=== PATIENT | female | born 1990 | race Caucasian/White ===

== ENCOUNTER 2019-06-03 15:15 | Inpatient (IN) | payer BC ==
[2019-06-03] VITALS (10 sets, daily range): BP systolic 115–148; BP diastolic 67–89
[~2019-06-03] VITALS: Ht 160 cm; Wt 81.6 kg
[2019-06-03] MEDS ORDERED: IV NORMAL SALINE 1000ML BAG 1,000 ML IV SCH (15:41)
--- NOTE | 2019-06-03 15:53 | PHYS DOC ---
Adult General Chief Complaint Chief Complaint: MULTIPLE COMPLAINTS HPI HPI Patient is a 28 year old Female who presents with Her last one and half weeks since she has had her baby on May 22. Patient states that she is also started last couple days feeling weak, dizzy and nauseated. Patient states she has not been drinking enough fluids but that is usually normal for her. Patient is breast-feeding. Patient states that the headache will start at the bottom of the neck and go up and wraps around to the forehead area. Patient states it's a throbbing pain. Patient states it comes and goes. Patient currently rates her pain a 0. Patient states she does have a history of headaches but this one feels worse than she has a past. Patient states that today she just feels numb all over and seems that she can get her words out straight or is having a hard time texting. Patient states she took Tylenol at 1200 today and took Aleve this morning at 0800. Review of Systems Review of Systems Eyes: + change in visual acuity, denies redness, or eye pain [] Respiratory: Denies cough. +shortness of breath [] GI: Denies abdominal pain, +nausea, denies vomiting, bloody stools or diarrhea [] Neurologic: headache, denies focal weakness or Generalized numbness sensory changes [] All other systems were reviewed and found to be within normal limits, except as documented in this note. Current Medications Current Medications Current Medications Medications (Trade) Dose Ordered Sig/Isai Start Time Stop Time Status Last Admin Dose Admin Meclizine HCl (Antivert) 25 mg 1X ONCE 06/03/19 16:00 06/03/19 16:01 DC 06/03/19 16:00 25 MG Sodium Chloride 1,000 ml @ 1,000 mls/hr Q1H 06/03/19 15:41 06/03/19 16:40 DC 06/03/19 15:41 1,000 MLS/HR Allergies Allergies Allergies Coded Allergies Type Severity Reaction Last Updated Verified Sulfa (Sulfonamide Antibiotics) Allergy Intermediate Unknown 06/03/19 Yes Physical Exam Physical Exam Constitutional: Well developed, well nourished, no acute distress, non-toxic appearance. [] HENT: Normocephalic, atraumatic, bilateral external ears normal, oropharynx moist, no oral exudates, nose normal. [] Eyes: PERRLA, EOMI, conjunctiva normal, no discharge. [] Neck: Normal range of motion, no tenderness, supple, no stridor. [] Cardiovascular:Heart rate regular rhythm, no murmur [] Lungs & Thorax: Bilateral breath sounds clear to auscultation [] Abdomen: Bowel sounds normal, soft, no tenderness, no masses, no pulsatile masses. [] Skin: Warm, dry, no erythema, no rash. [] Back: No tenderness, no CVA tenderness. [] Extremities: No tenderness, no cyanosis, no clubbing, ROM intact, no edema. [] Neurologic: Alert and oriented X 3, normal motor function, normal sensory function, no focal deficits noted. [] Psychologic: Affect normal, judgement normal, mood normal. Normal Physical Exam[] Current Patient Data Vital Signs Vital Signs Date Time Temp Pulse Resp B/P (MAP) Pulse Ox O2 Delivery O2 Flow Rate FiO2 06/03/19 16:03 98.6 70 17 156/94 (114) 98 Room Air 98.6 Lab Values Laboratory Tests Test 06/03/19 15:33 06/03/19 16:28 White Blood Count 9.5 x10^3/uL (4.0-11.0) Red Blood Count 4.87 x10^6/uL (3.50-5.40) Hemoglobin 14.4 g/dL (12.0-15.5) Hematocrit 42.4 % (36.0-47.0) Mean Corpuscular Volume 87 fL (79-100) Mean Corpuscular Hemoglobin 30 pg (25-35) Mean Corpuscular Hemoglobin Concent 34 g/dL (31-37) Red Cell Distribution Width 13.5 % (11.5-14.5) Platelet Count 268 x10^3/uL (140-400) Neutrophils (%) (Auto) 68 % (31-73) Lymphocytes (%) (Auto) 23 % (24-48) L Monocytes (%) (Auto) 6 % (0-9) Eosinophils (%) (Auto) 2 % (0-3) Basophils (%) (Auto) 1 % (0-3) Neutrophils # (Auto) 6.4 x10^3/uL (1.8-7.7) Lymphocytes # (Auto) 2.2 x10^3/uL (1.0-4.8) Monocytes # (Auto) 0.6 x10^3/uL (0.0-1.1) Eosinophils # (Auto) 0.2 x10^3/uL (0.0-0.7) Basophils # (Auto) 0.1 x10^3/uL (0.0-0.2) Sodium Level 144 mmol/L (136-145) Potassium Level 4.2 mmol/L (3.5-5.1) Chloride Level 105 mmol/L (98-107) Carbon Dioxide Level 27 mmol/L (21-32) Anion Gap 12 (6-14) Blood Urea Nitrogen 19 mg/dL (7-20) Creatinine 0.8 mg/dL (0.6-1.0) Estimated GFR (Cockcroft-Gault) 85.4 BUN/Creatinine Ratio 24 (6-20) H Glucose Level 107 mg/dL (70-99) H Calcium Level 9.8 mg/dL (8.5-10.1) Total Bilirubin 0.2 mg/dL (0.2-1.0) Aspartate Amino Transferase (AST) 12 U/L (15-37) L Alanine Aminotransferase (ALT) 12 U/L (14-59) L Alkaline Phosphatase 126 U/L (46-116) H Troponin I Quantitative < 0.017 ng/mL (0.000-0.055) Total Protein 7.4 g/dL (6.4-8.2) Albumin 3.8 g/dL (3.4-5.0) Albumin/Globulin Ratio 1.1 (1.0-1.7) Glucose (Fingerstick) 110 mg/dL (70-99) H Laboratory Tests 06/03/19 15:33 Laboratory Tests 06/03/19 15:33 EKG EKG Sinus Rhythm and no STEMI Interpretation Time: 1553 and read by Kousha Radiology/Procedures Radiology/Procedures [] Impressions: [facility] [address] [place] [address] IMAGING REPORT Signed PATIENT: YURIY GATES EACCOUNT: [id number] : 1990 LOCATION: ER AGE: 28 SEX: F EXAM STATUS: REG ER ORD. PHYSICIAN: HOME EVANS APRN REASON: HEADACHE PROCEDURE: CT HEAD WO CONTRAST Exam: CT head INDICATION: Headache TECHNIQUE: Sequential axial images through the head were obtained without the administration of IV contrast. Comparisons: None FINDINGS: No focal parenchymal lesion or hemorrhage is identified. There is no midline shift or sulcal effacement. No acute vascular territory infarction is identified. Cuello-white distinction is preserved. The ventricular system is within normal limits without compression hydrocephalus. The basal cisterns are well maintained. The visualized portions of the paranasal sinuses and mastoid air cells are well-pneumatized. No acute fractures. IMPRESSION: No acute intracranial abnormality. Exposure: One or more of the following in the visualized dose reduction techniques were utilized for this examination: 1. Automated exposure control 2. Adjustment of the MA and/or KV according to patient size Use of iterative of reconstructive technique Electronically signed by: David Morfin MD (06/03/2019 4:14 PM) [facility] DICTATED and SIGNED BY: DAVID MORFIN MD DATE: 06/03/19 1614 [facility] [address] [place] [address] IMAGING REPORT Signed PATIENT: YURIY GATES EACCOUNT: [id number] : 1990 LOCATION: ER AGE: 28 SEX: F EXAM STATUS: REG ER ORD. PHYSICIAN: HOME EVANS APRN REASON: Short of breath, CVA PROCEDURE: CHEST PA & LATERAL CHEST PA LATERAL History: Shortness of breath. Comparison: None. Findings: No consolidation or pleural effusion. Normal heart size. Impression: 1. No acute cardiopulmonary process. Electronically signed by: Abraham Garcia DO (06/03/2019 4:36 PM) [facility] DICTATED and SIGNED BY: ABRAHAM GARCIA DO DATE: 06/03/19 1636 Course & Med Decision Making Course & Med Decision Making Patient is a 28 year old Female who presents with Her last one and half weeks since she has had her baby on May 22. Patient states that she is also started last couple days feeling weak, dizzy and nauseated. Patient states she has not been drinking enough fluids but that is usually normal for her. Patient is breast-feeding. Patient states that the headache will start at the bottom of the neck and go up and wraps around to the forehead area. Patient states it's a throbbing pain. Patient states it comes and goes. Patient currently rates her pain a 0. Patient states she does have a history of headaches but this one feels worse than she has a past. Patient states that today she just feels numb all over and seems that she can get her words out straight or is having a hard time texting. Patient states she took Tylenol at 1200 today and took Aleve this morning at 0800. Alert and oriented. Speaks in full clear sentences. Ambulatory with a steady gait. Abdomen is soft and nontender. Patient states she started having vaginal bleeding since having the baby but is very scant amount. Patient states she has been eating and drinking but probably not drinking enough water. PERRLA. No tenderness to the cervical, thoracic, lumbar spine. Patient states she had a vaginal but did have an epidural. Patient had a baby at [facility]. Patient states she does have some blurred vision. Lungs are clear to auscultation all lobes. Patient states she does have some shortness of air that she noticed today but no chest pain or pain with breathing. Patient denies having a cough or running a fever or vomiting or having diarrhea. Skin is pink warm and dry. Vital signs within normal limits. PERC negative. No calf tenderness. No extremity swelling. Orthostatics are as follows: Layin, 164/96; sittin, 170/99; standing 72, 171/101. Patient states she did not have high blood pressure during her . Head CT and chest x-ray show no acute findings. Blood work is unremarkable. Her urinalysis is still processing. I have called and spoken with Dr. Mansfield and he states that she can be admitted to OB floor for hypertension. He stated to start her on magnesium sulfate 6 g bolus at 2 g an hour. I did call pharmacy so that this was ordered correctly. Patient continues to be stable with no new symptoms. She is alert and oriented. Dragon Disclaimer Dragon Disclaimer This electronic medical record was generated, in whole or in part, using a voice recognition dictation system. NIHSS Stroke Scale NIH Stroke Scale: NIH Stroke Scale Response (Comments) Value Level of Consciousness: 0 Alert/Responsive 0 LOC Questions: 0 Answers both correctly 0 LOC Commands: 0 Performs both tasks 0 Best Gaze: 0 Normal 0 Visual: 0 No visual loss 0 Facial Palsy: 0 Normal, symmetrical 0 Motor - Left Arm 0 No drift 0 Motor - Right Arm 0 No drift 0 Motor - Left Leg 0 No drift 0 Motor: Right Leg 0 No drift 0 Limb Ataxia: 0 Absent 0 Sensory: 0 No loss 0 Best Language: 0 Normal 0 Dysathria: 0 Normal 0 Extinction and Inattention: 0 Normal 0 Total 0 Departure Departure Impression: Primary Impression: hypertension Disposition: 09 ADMITTED INPATIENT Admitting Physician: KITTY Condition: STABLE HOME EVANS APRN Jun 03, 2019 15:53
[2019-06-03 15:54] LABS: BASO # 0.1 x10^3/uL (0.0-0.2); BASO % 1 % (0-3); EOS # 0.2 x10^3/uL (0.0-0.7); EOS % 2 % (0-3); HEMATOCRIT 42.4 % (36.0-47.0); HEMOGLOBIN 14.4 g/dL (12.0-15.5); LYMPH # 2.2 x10^3/uL (1.0-4.8); LYMPH % 23 % (24-48); MEAN CORPUSCULAR HEMOGLOBIN 30 pg (25-35); MEAN CORPUSCULAR HGB CONC 34 g/dL (31-37); MEAN CORPUSCULAR VOLUME 87 fL (79-100); MONO # 0.6 x10^3/uL (0.0-1.1); MONO % 6 % (0-9); NEUT # 6.4 x10^3/uL (1.8-7.7); NEUT % 68 % (31-73); PLATELET COUNT 268 x10^3/uL (140-400); RED BLOOD COUNT 4.87 x10^6/uL (3.50-5.40); RED CELL DISTRIBUTION WIDTH 13.5 % (11.5-14.5); WHITE BLOOD COUNT 9.5 x10^3/uL (4.0-11.0)
[2019-06-03] MEDS ORDERED: MECLIZINE HCL 12.5 MG TABLET. PO ONE (16:00)
[2019-06-03 16:02] LABS: CALCIUM 9.8 mg/dL (8.5-10.1); CREATININE 0.8 mg/dL (0.6-1.0); GFR 85.4; POTASSIUM 4.2 mmol/L (3.5-5.1)
[2019-06-03 16:08] LABS: ALBUMIN 3.8 g/dL (3.4-5.0); ALBUMIN/GLOBULIN RATIO 1.1 (1.0-1.7); TOTAL BILIRUBIN 0.2 mg/dL (0.2-1.0); TOTAL PROTEIN 7.4 g/dL (6.4-8.2)
--- NOTE | 2019-06-03 16:17 | RAD ---
Exam: CT head INDICATION: Headache TECHNIQUE: Sequential axial images through the head were obtained without the administration of IV contrast. Comparisons: None FINDINGS: No focal parenchymal lesion or hemorrhage is identified. There is no midline shift or sulcal effacement. No acute vascular territory infarction is identified. Cuello-white distinction is preserved. The ventricular system is within normal limits without compression hydrocephalus. The basal cisterns are well maintained. The visualized portions of the paranasal sinuses and mastoid air cells are well-pneumatized. No acute fractures. IMPRESSION: No acute intracranial abnormality. Exposure: One or more of the following in the visualized dose reduction techniques were utilized for this examination: 1. Automated exposure control 2. Adjustment of the MA and/or KV according to patient size Use of iterative of reconstructive technique Electronically signed by: David Matos MD (06/03/2019 4:14 PM) [facility]
--- NOTE | 2019-06-03 16:38 | RAD ---
CHEST PA LATERAL History: Shortness of breath. Comparison: None. Findings: No consolidation or pleural effusion. Normal heart size. Impression: 1. No acute cardiopulmonary process. Electronically signed by: Abraham Smith DO (06/03/2019 4:36 PM) [facility]
[2019-06-03 16:47] LABS: BILIRUBIN,URINE NEGATIVE (NEG); CLARITY,URINE CLEAR; COLOR,URINE YELLOW; NITRITE,URINE NEGATIVE (NEG); PH,URINE 6.5; PROTEIN,URINE NEGATIVE (NEG-TRACE); UROBILINOGEN,URINE 0.2 mg/dL (0.2 mg/dL)
[2019-06-03] MEDS ORDERED: ACETAMINOPHEN 325 MG TABLET. PO PRN (17:00)
[2019-06-03] MEDS ORDERED: fentaNYL PF VIAL 100 MCG/2 ML VIAL IV PRN (17:00)
[2019-06-03] MEDS ORDERED: CALCIUM GLUCONATE 1,000 MG/10 ML VIAL. IVP PRN (17:00)
[2019-06-03] MEDS ORDERED: ONDANSETRON PF 4 MG/2 ML VIAL. IV PRN (17:00)
[2019-06-03 17:12] LABS: BACTERIA,URINE MODERATE /HPF (0-FEW); RBC,URINE RARE /HPF (0-2); SQUAMOUS EPITHELIAL CELL,UR MANY /LPF; WBC,URINE >40 /HPF (0-4)
[2019-06-03] MEDS ORDERED: MAGNESIUM SULFATE 2GM 50 ML IV ONE (17:30)
[2019-06-03] MEDS ORDERED: MAGNESIUM SULFATE 4GM 100 ML IV ONE (17:30)
[2019-06-03] MEDS ORDERED: MAGNESIUM SULFATE 20GM 500 ML IV SCH (17:30)
--- NOTE | 2019-06-03 18:30 | NUR ---
This with presents herself to L&D from ER for readmission for post hypertension and headache. Pt. states had a history of dizziness and numbness to R side earlier today. Report received by Alfonzo GARCÍA.
--- NOTE | 2019-06-03 18:45 | NUR ---
Dr. Mansfield called, question about consult orders.
--- NOTE | 2019-06-03 18:50 | NUR ---
Dr. Sanchez's answering service called for routine consult.
[2019-06-03] MEDS: IV RINGERS,LACTATED 1000ML 1,000 ML IV SCH (19:03)
[2019-06-03] MEDS: MAGNESIUM SULFATE 20GM 500 ML IV SCH (19:06)
[2019-06-03] MEDS: IBUPROFEN 400 MG TABLET. PO PRN (21:10)
[2019-06-04] VITALS (18 sets, daily range): BP systolic 98–135; BP diastolic 53–86
[2019-06-04 04:16] LABS: BASO # 0.1 x10^3/uL (0.0-0.2); BASO % 1 % (0-3); EOS # 0.2 x10^3/uL (0.0-0.7); EOS % 3 % (0-3); HEMATOCRIT 43.8 % (36.0-47.0); HEMOGLOBIN 14.9 g/dL (12.0-15.5); LYMPH # 2.5 x10^3/uL (1.0-4.8); LYMPH % 28 % (24-48); MEAN CORPUSCULAR HEMOGLOBIN 30 pg (25-35); MEAN CORPUSCULAR HGB CONC 34 g/dL (31-37); MEAN CORPUSCULAR VOLUME 87 fL (79-100); MONO # 0.7 x10^3/uL (0.0-1.1); MONO % 7 % (0-9); NEUT # 5.6 x10^3/uL (1.8-7.7); NEUT % 61 % (31-73); PLATELET COUNT 257 x10^3/uL (140-400); RED BLOOD COUNT 5.05 x10^6/uL (3.50-5.40); RED CELL DISTRIBUTION WIDTH 13.7 % (11.5-14.5); WHITE BLOOD COUNT 9.1 x10^3/uL (4.0-11.0)
[2019-06-04 04:31] LABS: CALCIUM 8.2 mg/dL (8.5-10.1); CREATININE 0.7 mg/dL (0.6-1.0); GFR 99.6; POTASSIUM 4.1 mmol/L (3.5-5.1)
[2019-06-04 04:37] LABS: ALBUMIN 3.3 g/dL (3.4-5.0); ALBUMIN/GLOBULIN RATIO 0.9 (1.0-1.7); TOTAL BILIRUBIN 0.2 mg/dL (0.2-1.0); TOTAL PROTEIN 6.8 g/dL (6.4-8.2)
--- NOTE | 2019-06-04 05:00 | NUR ---
DR. garcia notified of pts labs,vital signs, continue with current plan of care. pt resting comfortably, castellanos out put good. iv fluids total of 125cc/hr. pt has denied any further complaints of pain. Has pumped twice this shift and milk sent to nursery fridge. reflexes wnl, no clonus pt has eaten 2 box lunches tonight.
[2019-06-04] MEDS: IBUPROFEN 400 MG TABLET. PO PRN ×2 (06:08→14:50)
[2019-06-04] MEDS: MAGNESIUM SULFATE 20GM 500 ML IV SCH ×3 (06:09→22:11)
[2019-06-04] MEDS: IV RINGERS,LACTATED 1000ML 1,000 ML IV SCH ×2 (08:06→21:40)
--- NOTE | 2019-06-04 09:47 | PDOC1 ---
History and Physical Date of Admission Date of Admission DATE: 06/04/19 TIME: 09:42 Identification/Chief Complaint Chief Complaint headache Source Source: Chart review, Patient History of Present Illness History of Present Illness 28 y/o s/p 8 days ago presented to ED with c/o severe headache. She was found to have elevated BP range 150-160/90-100's. She denies any complications with or elevated BP during . She was induced at 39 wks for elective induction. Past Surgical History Past Surgical History: No pertinent history Current Problem List Problem List Problems Medical Problems: (1) hypertension Status: Acute Current Medications Current Medications Current Medications Sodium Chloride 1,000 ml @ 1,000 mls/hr Q1H IV Last administered on 06/03/19at 15:41; Start 06/03/19 at 15:41; Stop 06/03/19 at 16:40; Status DC Meclizine HCl (Antivert) 25 mg 1X ONCE PO Last administered on 06/03/19at 16:00; Start 06/03/19 at 16:00; Stop 06/03/19 at 16:01; Status DC Magnesium Sulfate 100 ml @ 135 mls/hr 1X ONCE IV Last administered on 06/03/19at 17:24; Start 06/03/19 at 17:30; Stop 06/03/19 at 18:14; Status DC Magnesium Sulfate 500 ml @ 50 mls/hr Q10H IV ; Start 06/03/19 at 17:30; Stop 06/03/19 at 19:03; Status DC Calcium Gluconate (Calcium Gluconate) 1,000 mg 1X PRN PRN IVP MAGNESIUM TOXICITY; Start 06/03/19 at 17:00 Magnesium Sulfate 50 ml @ 25 mls/hr 1X ONCE IV Last administered on 06/03/19at 18:10; Start 06/03/19 at 17:30; Stop 06/03/19 at 19:29; Status DC Ondansetron HCl (Zofran) 4 mg PRN Q8HRS PRN IV NAUSEA/VOMITING; Start 06/03/19 at 17:00; Stop 06/04/19 at 16:59 Fentanyl Citrate (Fentanyl 2ml Vial) 50 mcg PRN Q1HR PRN IV PAIN Last admi nistered on 06/03/19at 17:13; Start 06/03/19 at 17:00; Stop 06/04/19 at 16:59 Acetaminophen (Tylenol) 650 mg PRN Q4HRS PRN PO FEVER; Start 06/03/19 at 17:00; Stop 06/04/19 at 16:59 Ibuprofen (Motrin) 800 mg PRN Q8HRS PRN PO PAIN Last administered on 06/04/19at 06:08; Start 06/03/19 at 18:45 Ringer's Solution 1,000 ml @ 75 mls/hr [id number] IV Last administered on 06/04/19at 08:06; Start 06/03/19 at 19:00 Magnesium Sulfate 500 ml @ 50 mls/hr Q10H IV Last administered on 06/04/19at 06:09; Start 06/03/19 at 19:03 Allergies Allergies: Coded Allergies: Sulfa (Sulfonamide Antibiotics) (Verified Allergy, Intermediate, Unknown, 06/03/19) REACTION TO SULFA MEDICATION A CHILD ROS General: YES: Fatigue; No: Chills, Night Sweats, Malaise, Appetite, Other PSYCHOLOGICAL ROS: YES: Anxiety; No: Behavioral Disorder, Concentration difficultie, Decreased libido, Depression, Disorientation, Hallucinations, Hostility, Irritablity, Memory difficulties, Mood Swings, Obsessive thoughts, Physical abuse, Sexual abuse, Sleep disturbances, Suicidal ideation, Other Eyes: No Blurry vision, No Decreased vision, No Double vision, No Dry eyes, No Excessive tearing, No Eye Pain, No Itchy Eyes, No Loss of vision, No Photophobia, No Scotomata, No Uses contacts, No Uses glasses, No Other HEENT: YES: Heacaches; No: Visual Changes, Hearing change, Nasal congestion, Nasal discharge, Oral lesions, Sinus pain, Sore Throat, Epistaxis, Sneezing, Snoring, Tinnitus, Musa tigo, Vocal changes, Other ALLERGY AND IMMUNOLOGY: No: Hives, Insect Bite Sensitivity, Itchy/Watery Eyes, Nasal Congestion, Post Nasal Drip, Seasonal Allergies, Other Hematological and Lymphatic: No: Bleeding Problems, Blood Clots, Blood Transfusions, Brusing, Night Sweats, Pallor, Swollen Lymph Nodes, Other ENDOCRINE: No: Breast Changes, Galactorrhea, Hair Pattern Changes, Hot Flashes, Malaise/lethargy, Mood Swings, Palpitations, Polydipsia/polyuria, Skin Changes, Temperature Intolerance, Unexpected Weight Changes, Other Breast: No New/Changing Breast Lumps, No Nipple changes, No Nipple discharge, No Other Respiratory: No: Cough, Hemoptysis, Orthopnea, Pleuritic Pain, Shortness of breath, SOB with excertion, Sputum Changes, Stridor, Tachypnea, Wheezing, Other Cardiovascular: No Chest Pain, No Palpitations, No Orthopnea, No Paroxysmal Noc. Dyspnea, No Edema, No Lt Headedness, No Other Gastrointestinal: No Nausea, No Vomiting, No Abdominal Pain, No Diarrhea, No Constipation, No Melena, No Hematochezia, No Other Skin: No Dry Skin, No Eczema, No Hair Changes, No Lumps, No Mole Changes, No M ottling, No Nail Changes, No Pruritus, No Rash, No Skin Lesion Changes, No Other, No Acne Vitals Vitals Vital Signs Date Time Temp Pulse Resp B/P (MAP) Pulse Ox O2 Delivery O2 Flow Rate FiO2 06/04/19 08:00 20 123/79 (94) 06/04/19 07:00 98.2 67 98.2 06/04/19 06:24 98 Room Air Labs Labs Laboratory Tests Test 06/03/19 15:33 06/03/19 16:28 06/03/19 16:37 06/04/19 04:10 White Blood Count 9.5 x10^3/uL (4.0-11.0) 9.1 x10^3/uL (4.0-11.0) Red Blood Count 4.87 x10^6/uL (3.50-5.40) 5.05 x10^6/uL (3.50-5.40) Hemoglobin 14.4 g/dL (12.0-15.5) 14.9 g/dL (12.0-15.5) Hematocrit 42.4 % (36.0-47.0) 43.8 % (36.0-47.0) Mean Corpuscular Volume 87 fL (79-100) 87 fL (79-100) Mean Corpuscular Hemoglobin 30 pg (25-35) 30 pg (25-35) Mean Corpuscular Hemoglobin Concent 34 g/dL (31-37) 34 g/dL (31-37) Red Cell Distribution Width 13.5 % (11.5-14.5) 13.7 % (11.5-14.5) Platelet Count 268 x10^3/uL (140-400) 257 x10^3/uL (140-400) Neutrophils (%) (Auto) 68 % (31-73) 61 % (31-73) Lymphocytes (%) (Auto) 23 % (24-48) 28 % (24-48) Monocytes (%) (Auto) 6 % (0-9) 7 % (0-9) Eosinophils (%) (Auto) 2 % (0-3) 3 % (0-3) Basophils (%) (Auto) 1 % (0-3) 1 % (0-3) Neutrophils # (Auto) 6.4 x10^3/uL (1.8-7.7) 5.6 x10^3/uL (1.8-7.7) Lymphocytes # (Auto) 2.2 x10^3/uL (1.0-4.8) 2.5 x10^3/uL (1.0-4.8) Monocytes # (Auto) 0.6 x10^3/uL (0.0-1.1) 0.7 x10^3/uL (0.0-1.1) Eosinophils # (Auto) 0.2 x10^3/uL (0.0-0.7) 0.2 x10^3/uL (0.0-0.7) Basophils # (Auto) 0.1 x10^3/uL (0.0-0.2) 0.1 x10^3/uL (0.0-0.2) Sodium Level 144 mmol/L (136-145) 140 mmol/L (136-145) Potassium Level 4.2 mmol/L (3.5-5.1) 4.1 mmol/L (3.5-5.1) Chloride Level 105 mmol/L (98-107) 103 mmol/L (98-107) Carbon Dioxide Level 27 mmol/L (21-32) 28 mmol/L (21-32) Anion Gap 12 (6-14) 9 (6-14) Blood Urea Nitrogen 19 mg/dL (7-20) 13 mg/dL (7-20) Creatinine 0.8 mg/dL (0.6-1.0) 0.7 mg/dL (0.6-1.0) Estimated GFR (Cockcroft-Gault) 85.4 99.6 BUN/Creatinine Ratio 24 (6-20) 19 (6-20) Glucose Level 107 mg/dL (70-99) 113 mg/dL (70-99) Calcium Level 9.8 mg/dL (8.5-10.1) 8.2 mg/dL (8.5-10.1) Magnesium Level 2.1 mg/dL (1.8-2.4) Total Bilirubin 0.2 mg/dL (0.2-1.0) 0.2 mg/dL (0.2-1.0) Aspartate Amino Transf (AST/SGOT) 12 U/L (15-37) 12 U/L (15-37) Alanine Aminotransferase (ALT/SGPT) 12 U/L (14-59) 12 U/L (14-59) Alkaline Phosphatase 126 U/L (46-116) 120 U/L (46-116) Troponin I Quantitative < 0.017 ng/mL (0.000-0.055) Total Protein 7.4 g/dL (6.4-8.2) 6.8 g/dL (6.4-8.2) Albumin 3.8 g/dL (3.4-5.0) 3.3 g/dL (3.4-5.0) Albumin/Globulin Ratio 1.1 (1.0-1.7) 0.9 (1.0-1.7) Glucose (Fingerstick) 110 mg/dL (70-99) Urine Collection Type Unknown Urine Color Yellow Urine Clarity Clear Urine pH 6.5 Urine Specific [place] 1.010 Urine Protein Negative mg/dL (NEG-TRACE) Urine Glucose (UA) Negative mg/dL (NEG) Urine Ketones (Stick) Negative mg/dL (NEG) Urine Blood Large (NEG) Urine Nitrite Negative (NEG) Urine Bilirubin Negative (NEG) Urine Urobilinogen Dipstick 0.2 mg/dL (0.2 mg/dL) Urine Leukocyte Esterase Moderate (NEG) Urine RBC Rare /HPF (0-2) Urine WBC >40 /HPF (0-4) Urine Squamous Epithelial Cells Many /LPF Urine Bacteria Moderate /HPF (0-FEW) Laboratory Tests Test 06/03/19 15:33 06/03/19 16:28 06/03/19 16:37 06/04/19 04:10 White Blood Count 9.5 x10^3/uL (4.0-11.0) 9.1 x10^3/uL (4.0-11.0) Red Blood Count 4.87 x10^6/uL (3.50-5.40) 5.05 x10^6/uL (3.50-5.40) Hemoglobin 14.4 g/dL (12.0-15.5) 14.9 g/dL (12.0-15.5) Hematocrit 42.4 % (36.0-47.0) 43.8 % (36.0-47.0) Mean Corpuscular Volume 87 fL (79-100) 87 fL (79-100) Mean Corpuscular Hemoglobin 30 pg (25-35) 30 pg (25-35) Mean Corpuscular Hemoglobin Concent 34 g/dL (31-37) 34 g/dL (31-37) Red Cell Distribution Width 13.5 % (11.5-14.5) 13.7 % (11.5-14.5) Platelet Count 268 x10^3/uL (140-400) 257 x10^3/uL (140-400) Neutrophils (%) (Auto) 68 % (31-73) 61 % (31-73) Lymphocytes (%) (Auto) 23 % (24-48) 28 % (24-48) Monocytes (%) (Auto) 6 % (0-9) 7 % (0-9) Eosinophils (%) (Auto) 2 % (0-3) 3 % (0-3) Basophils (%) (Auto) 1 % (0-3) 1 % (0-3) Neutrophils # (Auto) 6.4 x10^3/uL (1.8-7.7) 5.6 x10^3/uL (1.8-7.7) Lymphocytes # (Auto) 2.2 x10^3/uL (1.0-4.8) 2.5 x10^3/uL (1.0-4.8) Monocytes # (Auto) 0.6 x10^3/uL (0.0-1.1) 0.7 x10^3/uL (0.0-1.1) Eosinophils # (Auto) 0.2 x10^3/uL (0.0-0.7) 0.2 x10^3/uL (0.0-0.7) Basophils # (Auto) 0.1 x10^3/uL (0.0-0.2) 0.1 x10^3/uL (0.0-0.2) Sodium Level 144 mmol/L (136-145) 140 mmol/L (136-145) Potassium Level 4.2 mmol/L (3.5-5.1) 4.1 mmol/L (3.5-5.1) Chloride Level 105 mmol/L (98-107) 103 mmol/L (98-107) Carbon Dioxide Level 27 mmol/L (21-32) 28 mmol/L (21-32) Anion Gap 12 (6-14) 9 (6-14) Blood Urea Nitrogen 19 mg/dL (7-20) 13 mg/dL (7-20) Creatinine 0.8 mg/dL (0.6-1.0) 0.7 mg/dL (0.6-1.0) Estimated GFR (Cockcroft-Gault) 85.4 99.6 BUN/Creatinine Ratio 24 (6-20) 19 (6-20) Glucose Level 107 mg/dL (70-99) 113 mg/dL (70-99) Calcium Level 9.8 mg/dL (8.5-10.1) 8.2 mg/dL (8.5-10.1) Magnesium Level 2.1 mg/dL (1.8-2.4) Total Bilirubin 0.2 mg/dL (0.2-1.0) 0.2 mg/dL (0.2-1.0) Aspartate Amino Transf (AST/SGOT) 12 U/L (15-37) 12 U/L (15-37) Alanine Aminotransferase (ALT/SGPT) 12 U/L (14-59) 12 U/L (14-59) Alkaline Phosphatase 126 U/L (46-116) 120 U/L (46-116) Troponin I Quantitative < 0.017 ng/mL (0.000-0.055) Total Protein 7.4 g/dL (6.4-8.2) 6.8 g/dL (6.4-8.2) Albumin 3.8 g/dL (3.4-5.0) 3.3 g/dL (3.4-5.0) Albumin/Globulin Ratio 1.1 (1.0-1.7) 0.9 (1.0-1.7) Glucose (Fingerstick) 110 mg/dL (70-99) Urine Collection Type Unknown Urine Color Yellow Urine Clarity Clear Urine pH 6.5 Urine Specific [place] 1.010 Urine Protein Negative mg/dL (NEG-TRACE) Urine Glucose (UA) Negative mg/dL (NEG) Urine Ketones (Stick) Negative mg/dL (NEG) Urine Blood Large (NEG) Urine Nitrite Negative (NEG) Urine Bilirubin Negative (NEG) Urine Urobilinogen Dipstick 0.2 mg/dL (0.2 mg/dL) Urine Leukocyte Esterase Moderate (NEG) Urine RBC Rare /HPF (0-2) Urine WBC >40 /HPF (0-4) Urine Squamous Epithelial Cells Many /LPF Urine Bacteria Moderate /HPF (0-FEW) VTE Prophylaxis Ordered VTE Prophylaxis Devices: Yes VTE Pharmacological Prophylaxi: No Assessment/Plan Assessment/Plan A: Preeclampsia P: Admit for magnesium sulfate treatment x [address] Monitor [address]'s[address] scan was negative. Consult Neurology. POONAM LI Jr, MD Jun 04, 2019 09:47
--- NOTE | 2019-06-04 11:13 | EKG ---
[facility] [address] [place] [address] Test Date: 2019-06-03 Test Time: 15:52:29 Pat Name: YURIY GATES Department: Room: [facility] Gender: F Lithostripper: KELVIN : 1990 Requested By: HOME EVANS Order Number: [id number] Reading MD: Measurements Intervals Pavilion Rate: 73 P: 47 MS: 120 QRS: -20 QRSD: 86 T: 23 QT: 400 QTc: 444 Interpretive Statements SINUS RHYTHM LEFT ATRIAL ABNORMALITY LEFTWARD AXIS ABNORMAL ECG RI6.01 No previous ECG available for comparison
--- NOTE | 2019-06-04 13:59 | NUR ---
Pt. states she feeling confused, seeing spots, having increased headache.
--- NOTE | 2019-06-04 14:30 | NUR ---
Dr. Mansfield called to report symptoms of headache, confusion, and seeing spots. B/P WNL, IV Magnesium continues to infuse. No new orders.
[2019-06-04] MEDS ORDERED: diphenhydrAMINE 50 MG/ML VIAL IVP PRN (15:30)
[2019-06-04] MEDS ORDERED: KETOROLAC 30 MG/ML VIAL. IV PRN (15:30)
--- NOTE | 2019-06-04 16:00 | NUR ---
Dr. Sanchez at [facility]
--- NOTE | 2019-06-04 20:49 | PDOC2 ---
CONSULT Date of Consult Date of Consult DATE: 06/04/19 TIME: 20:48 Identification/Chief Complaint Chief Complaint Headaches. History of Present Illness Reason for Visit: This patient is 28-year-old woman with past medical history of migraine headaches. Patient is a status post delivery 8 days back. Patient presented with complaint of left-sided headaches. Associated with photophobia, phonophobia. Patient also had elevated blood pressures. Patient reports she has past medical history of migraine headaches patient is currently not taking any migraine headache prophylactic agent. Patient denies any complaint of difficulty speaking. Patient denies any tingling numbness on the face. Patient denies any focal extremity weakness. Past Surgical History Past Surgical History: No pertinent history Current Problem List Problem List Problems Medical Problems: (1) hypertension Status: Acute Current Medications Current Medications Current Medications Sodium Chloride 1,000 ml @ 1,000 mls/hr Q1H IV Last administered on 06/03/19at 15:41; Start 06/03/19 at 15:41; Stop 06/03/19 at 16:40; Status DC Meclizine HCl (Antivert) 25 mg 1X ONCE PO Last administered on 06/03/19at 16:00; Start 06/03/19 at 16:00; Stop 06/03/19 at 16:01; Status DC Magnesium Sulfate 100 ml @ 135 mls/hr 1X ONCE IV Last administered on 06/03/19at 17:24; Start 06/03/19 at 17:30; Stop 06/03/19 at 18:14; Status DC Magnesium Sulfate 500 ml @ 50 mls/hr Q10H IV ; Start 06/03/19 at 17:30; Stop 06/03/19 at 19:03; Status DC Calcium Gluconate (Calcium Gluconate) 1,000 mg 1X PRN PRN IVP MAGNESIUM TOXICITY; Start 06/03/19 at 17:00 Magnesium Sulfate 50 ml @ 25 mls/hr 1X ONCE IV Last administered on 06/03/19at 18:10; Start 06/03/19 at 17:30; Stop 06/03/19 at 19:29; Status DC Ondansetron HCl (Zofran) 4 mg PRN Q8HRS PRN IV NAUSEA/VOMITING; Start 06/03/19 at 17:00; Stop 06/04/19 at 16:59; Status DC Fentanyl Citrate (Fentanyl 2ml Vial) 50 mcg PRN Q1HR PRN IV PAIN Last administered on 06/03/19 17:13; Start 06/03/19 at 17:00; Stop 06/04/19 at 16:59; Status DC Acetaminophen (Tylenol) 650 mg PRN Q4HRS PRN PO FEVER Last administered on 06/04/19 15:53; Start 06/03/19 at 17:00; Stop 06/04/19 at 16:59; Status DC Ibuprofen (Motrin) 800 mg PRN Q8HRS PRN PO PAIN Last administered on 06/04/19 14:50; Start 06/03/19 at 18:45 Ringer's Solution 1,000 ml @ 75 mls/hr [id number] IV Last administered on 06/04/19 08:06; Start 06/03/19 at 19:00 Magnesium Sulfate 500 ml @ 50 mls/hr Q10H IV Last administered on 06/04/19 06:09; Start 06/03/19 at 19:03 Ketorolac Tromethamine (Toradol 30mg Vial) 30 mg PRN Q6HRS PRN IV PAIN Last administered on 06/04/19 19:44; Start 06/04/19 at 15:30; Stop 06/09/19 at 15:29 Diphenhydramine HCl (Benadryl) 25 mg PRN Q6HRS PRN IVP ITCHING Last administered on 06/04/19 19:46; Start 06/04/19 at 15:30 Allergies Allergies: Coded Allergies: Sulfa (Sulfonamide Antibiotics) (Verified Allergy, Intermediate, Unknown, 06/03/19) REACTION TO SULFA MEDICATION A CHILD Physical Exam Physical Exam General no acute distress. HEENT: Normocephalic and atraumatic. NECK: Supple without bruit Respiratory: Clear to auscultation bilaterally Heart: Regular rate and rhythm, S1S2 normal NEUROLOGIC: Mental status Alert oriented. Cranial nerve equally reactive pupils, and intact extraocular movements. No facial asymmetry. Palate elevates and tongue protrudes in midline. Reflexes are 1-2 with flexor plantar responses. Coordination no dysmetria Strength able to move all exts equally. Sensory exam is intact for light touch and pinprick. Gait in bed. Vitals VITALS Vital Signs Date Time Temp Pulse Resp B/P (MAP) Pulse Ox O2 Delivery O2 Flow Rate FiO2 06/04/19 18:00 75 18 124/74 (91) 97 06/04/19 07:00 98.2 98.2 06/04/19 06:24 Room Air Labs Labs Laboratory Tests Test 06/03/19 15:33 06/03/19 16:28 06/03/19 16:37 06/04/19 04:10 White Blood Count 9.5 x10^3/uL (4.0-11.0) 9.1 x10^3/uL (4.0-11.0) Red Blood Count 4.87 x10^6/uL (3.50-5.40) 5.05 x10^6/uL (3.50-5.40) Hemoglobin 14.4 g/dL (12.0-15.5) 14.9 g/dL (12.0-15.5) Hematocrit 42.4 % (36.0-47.0) 43.8 % (36.0-47.0) Mean Corpuscular Volume 87 fL (79-100) 87 fL (79-100) Mean Corpuscular Hemoglobin 30 pg (25-35) 30 pg (25-35) Mean Corpuscular Hemoglobin Concent 34 g/dL (31-37) 34 g/dL (31-37) Red Cell Distribution Width 13.5 % (11.5-14.5) 13.7 % (11.5-14.5) Platelet Count 268 x10^3/uL (140-400) 257 x10^3/uL (140-400) Neutrophils (%) (Auto) 68 % (31-73) 61 % (31-73) Lymphocytes (%) (Auto) 23 % (24-48) 28 % (24-48) Monocytes (%) (Auto) 6 % (0-9) 7 % (0-9) Eosinophils (%) (Auto) 2 % (0-3) 3 % (0-3) Basophils (%) (Auto) 1 % (0-3) 1 % (0-3) Neutrophils # (Auto) 6.4 x10^3/uL (1.8-7.7) 5.6 x10^3/uL (1.8-7.7) Lymphocytes # (Auto) 2.2 x10^3/uL (1.0-4.8) 2.5 x10^3/uL (1.0-4.8) Monocytes # (Auto) 0.6 x10^3/uL (0.0-1.1) 0.7 x10^3/uL (0.0-1.1) Eosinophils # (Auto) 0.2 x10^3/uL (0.0-0.7) 0.2 x10^3/uL (0.0-0.7) Basophils # (Auto) 0.1 x10^3/uL (0.0-0.2) 0.1 x10^3/uL (0.0-0.2) Sodium Level 144 mmol/L (136-145) 140 mmol/L (136-145) Potassium Level 4.2 mmol/L (3.5-5.1) 4.1 mmol/L (3.5-5.1) Chloride Level 105 mmol/L (98-107) 103 mmol/L (98-107) Carbon Dioxide Level 27 mmol/L (21-32) 28 mmol/L (21-32) Anion Gap 12 (6-14) 9 (6-14) Blood Urea Nitrogen 19 mg/dL (7-20) 13 mg/dL (7-20) Creatinine 0.8 mg/dL (0.6-1.0) 0.7 mg/dL (0.6-1.0) Estimated GFR (Cockcroft-Gault) 85.4 99.6 BUN/Creatinine Ratio 24 (6-20) 19 (6-20) Glucose Level 107 mg/dL (70-99) 113 mg/dL (70-99) Calcium Level 9.8 mg/dL (8.5-10.1) 8.2 mg/dL (8.5-10.1) Magnesium Level 2.1 mg/dL (1.8-2.4) Total Bilirubin 0.2 mg/dL (0.2-1.0) 0.2 mg/dL (0.2-1.0) Aspartate Amino Transf (AST/SGOT) 12 U/L (15-37) 12 U/L (15-37) Alanine Aminotransferase (ALT/SGPT) 12 U/L (14-59) 12 U/L (14-59) Alkaline Phosphatase 126 U/L (46-116) 120 U/L (46-116) Troponin I Quantitative < 0.017 ng/mL (0.000-0.055) Total Protein 7.4 g/dL (6.4-8.2) 6.8 g/dL (6.4-8.2) Albumin 3.8 g/dL (3.4-5.0) 3.3 g/dL (3.4-5.0) Albumin/Globulin Ratio 1.1 (1.0-1.7) 0.9 (1.0-1.7) Glucose (Fingerstick) 110 mg/dL (70-99) Urine Collection Type Unknown Urine Color Yellow Urine Clarity Clear Urine pH 6.5 Urine Specific [place] 1.010 Urine Protein Negative mg/dL (NEG-TRACE) Urine Glucose (UA) Negative mg/dL (NEG) Urine Ketones (Stick) Negative mg/dL (NEG) Urine Blood Large (NEG) Urine Nitrite Negative (NEG) Urine Bilirubin Negative (NEG) Urine Urobilinogen Dipstick 0.2 mg/dL (0.2 mg/dL) Urine Leukocyte Esterase Moderate (NEG) Urine RBC Rare /HPF (0-2) Urine WBC >40 /HPF (0-4) Urine Squamous Epithelial Cells Many /LPF Urine Bacteria Moderate /HPF (0-FEW) Laboratory Tests Test 06/04/19 04:10 White Blood Count 9.1 x10^3/uL (4.0-11.0) Red Blood Count 5.05 x10^6/uL (3.50-5.40) Hemoglobin 14.9 g/dL (12.0-15.5) Hematocrit 43.8 % (36.0-47.0) Mean Corpuscular Volume 87 fL (79-100) Mean Corpuscular Hemoglobin 30 pg (25-35) Mean Corpuscular Hemoglobin Concent 34 g/dL (31-37) Red Cell Distribution Width 13.7 % (11.5-14.5) Platelet Count 257 x10^3/uL (140-400) Neutrophils (%) (Auto) 61 % (31-73) Lymphocytes (%) (Auto) 28 % (24-48) Monocytes (%) (Auto) 7 % (0-9) Eosinophils (%) (Auto) 3 % (0-3) Basophils (%) (Auto) 1 % (0-3) Neutrophils # (Auto) 5.6 x10^3/uL (1.8-7.7) Lymphocytes # (Auto) 2.5 x10^3/uL (1.0-4.8) Monocytes # (Auto) 0.7 x10^3/uL (0.0-1.1) Eosinophils # (Auto) 0.2 x10^3/uL (0.0-0.7) Basophils # (Auto) 0.1 x10^3/uL (0.0-0.2) Sodium Level 140 mmol/L (136-145) Potassium Level 4.1 mmol/L (3.5-5.1) Chloride Level 103 mmol/L (98-107) Carbon Dioxide Level 28 mmol/L (21-32) Anion Gap 9 (6-14) Blood Urea Nitrogen 13 mg/dL (7-20) Creatinine 0.7 mg/dL (0.6-1.0) Estimated GFR (Cockcroft-Gault) 99.6 BUN/Creatinine Ratio 19 (6-20) Glucose Level 113 mg/dL (70-99) Calcium Level 8.2 mg/dL (8.5-10.1) Total Bilirubin 0.2 mg/dL (0.2-1.0) Aspartate Amino Transf (AST/SGOT) 12 U/L (15-37) Alanine Aminotransferase (ALT/SGPT) 12 U/L (14-59) Alkaline Phosphatase 120 U/L (46-116) Total Protein 6.8 g/dL (6.4-8.2) Albumin 3.3 g/dL (3.4-5.0) Albumin/Globulin Ratio 0.9 (1.0-1.7) Assessment/Plan Assessment/Plan This patient is 28-year-old woman with past medical history of migraine headaches. Patient is a status post delivery 8 days back. Patient presented with complaint of left-sided headaches. Associated with photophobia, phonophobia. Patient also had elevated blood pressures. Patient reports she has past medical history of migraine headaches patient is currently not taking any migraine headache prophylactic agent. Patient denies any complaint of difficulty speaking. Patient denies any tingling numbness on the face. Patient denies any focal extremity weakness. This patient is 28-year-old woman with past medical history of migraine headaches. Patient is a status post delivery 8 days back. Patient presented with complaint of left-sided headaches. Associated with photophobia, phonophobia. Patient also had elevated blood pressures. He had a CT brain did not show any evidence of acute intracranial etiology no evidence of acute hemorrhage or mass. Patient is also being treated for preeclampsia on magnesium. Patient has worsening of her migraine headaches associated with photophobia, phonophobia. Neuro exam stable. Pain control.Will also get a MRI a MRA of brain to evaluate for any acute intracranial etiology. Continue medical management. Plan discussed with patient, patient's family at bedside KARLIE CEJA MD Jun 04, 2019 20:49
[2019-06-05 02:30] VITALS: BP 142/88
[2019-06-05] MEDS: IBUPROFEN 400 MG TABLET. PO PRN (02:52)
[2019-06-05] MEDS ORDERED: ACETAMINOPHEN 325 MG TABLET. PO PRN (03:00)
[2019-06-05 06:23] VITALS: BP 134/72
--- NOTE | 2019-06-05 08:20 | NUR ---
patient crying states feels confused why she does not feel normal. 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 ate a piece of toast for breakfast bp160/88 pulse 66 temp 98.4
--- NOTE | 2019-06-05 08:44 | NUR ---
pt states had epidural with her delivery 05-22-19. Did not have any problems from this at that time. Is now pumping while in hospital. sitting up in bed at this time states is ok no pain just want to know why headache
--- NOTE | 2019-06-05 08:55 | NUR ---
pt down via w/c for mri mrv.
--- NOTE | 2019-06-05 10:24 | RAD ---
EXAMINATION: Magnetic resonance imaging (MRI) of the brain and brainstem without contrast 06/04/2019 3:25 PM HISTORY: Headache and confusion TECHNIQUE: Multiplanar multi-weighted MRI of the brain and brainstem was performed without intravenous contrast using the general brain protocol. COMPARISON: CT head 06/03/2019. FINDINGS: The scalp and calvarium are normal. The superior sagittal sinus demonstrates normal venous flow. The corpus callosum is normal in shape and signal intensity. The posterior fossa is unremarkable. The pituitary and sella are normal. The brainstem and craniocervical junction are unremarkable. There are are foci of diffusion signal hyperintensity involving the left centrum semiovale measuring up to 7 mm with faint low ADC signal. Additionally, there is gyriform diffusion signal hyperintensity involving the right parieto-occipital lobe with low signal on ADC map. There is an additional area of diffusion signal hyperintensity involving the left cerebellum with corresponding low ADC signal. Findings most favor infarcts which are subacute in chronicity. Cytotoxic edema is noted with corresponding FLAIR and T2 signal hyperintensity. There is no intracranial hemorrhage identified. No mass effect or midline shift. The susceptibility weighted sequences reveal no evidence of acute or chronic hemorrhage. The ventricles are normal in size and position without evidence of hydrocephalus. Cerebellar tonsils lie approximately 4 mm below level of foramen magnum. The paranasal sinuses are normal. The visualized portions of the mastoids are unremarkable. The orbits appear normal. Normal flow voids are demonstrated in the carotid arteries and basilar artery. IMPRESSION: There are subacute infarcts identified in the right parieto-occipital lobe, left cerebellum and left centrum semiovale. Primary consideration would be given for embolic phenomena given involvement of diffusion vascular territories. There is no mass effect or midline shift. No acute intracranial hemorrhage. There is associated cytotoxic edema. Cerebellar tonsils are borderline low-lying measuring 4 mm below the level of the foramen magnum. FOR INTERNAL CODING PURPOSES Critical result: Findings discussed with Karen, the patient's nurse, at 06/05/2019 10:20 AM. RESULT CODE: (C) Electronically signed by: Merline Cortes MD (06/05/2019 10:21 AM) [facility]
[2019-06-05] MEDS ORDERED: CLOPIDOGREL BISULFATE 75 MG TABLET PO SCH (12:00)
--- NOTE | 2019-06-05 12:25 | RAD ---
ANGIOGRAPHY BRAIN WO CONTRAST History: Headache. Confusion. Technique: 2-D [id number] MR venogram was performed of the brain sagittal, coronal and axial sequences. 3-D reconstructions were performed. Comparison: MRI brain June 04, 2019. Head CT June 03, 2019. Findings: No stenosis or occlusion with correlation of all 3 planes. Impression: 1. No dural venous sinus stenosis or occlusion. Electronically signed by: Abraham Smith DO (06/05/2019 12:22 PM) [id number]
--- NOTE | 2019-06-05 13:53 | PDOC2 ---
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 Cerebral edema. Headache. HTN. UTI. Recent preeclampsia. Status . Obesity. RECOMMENDATIONS/PLAN: Plavix 75 mg daily. Echo + Bubble study. Lab: see orders. Control HTN. Discussed with patient and her at bedside. Patient plans for formula feeding instead breast feeding. MRI: see above findings. MRA: No abnormal finding. HISTORY OF THE PRESENT ILLNESS: This patient is 28-year-old woman with past medical history of migraine headaches. She is a status post delivery about 9 days ago. She came to the ER of [facility] presented with complaints of left-sided headaches associated with photophobia, phonophobia. Her BP was elevated. She denied difficulty speaking, sensory or motor deficits. Further evaluation revealed above infarcts. Allergies Coded Allergies: Sulfa (Sulfonamide Antibiotics) (Verified Allergy, Intermediate, Unknown, 06/03/19) REACTION TO SULFA MEDICATION A CHILD PAST MEDICAL HISTORY: Please see above. PAST SURGERY HISTORY: No major surgery recently. ALLERGY: Sulfa (Sulfonamide Antibiotics) (Verified Allergy, Intermediate, Unknown, 06/03/19) REACTION TO SULFA MEDICATION A CHILD MEDICATIONS: Refer to [facility] FAMILY HISTORY: Non contributory. SOCIAL HISTORY: Lives with family at home. Denies current smoking, drinking, and illicit drug use. REVIEW OF SYSTEMS: Constitutional: No malnutrition, weight loss, cachexia. Head: No traumatic brain or head injury. Skin: No edema, or rash. Ear: No infection. Eyes: No vision loss or color blindness. Nose: No bleeding or purulent discharges. Hearing: No hearing decrease. Neck: No injury. Breast: No history of cancer, masses,or discharges. Cardiac: HTN. Pulmonary: No COPD. GI: No GI ulcer, GI bleeding. Urinary/genital: UTI. Endocrinologic: Obesity. Skeletomuscular: No muscular atrophy, deformity. Neurological: see HP. Psychiatric: Denies drug use/abuse. Otherwise, not [id number] review of systems. PHYSICAL EXAMINATION: General appearance is in subacute distress. HEENT: Normocephalic and nontraumatic. Eyes, nose, ears, and throat are unremarkable. Neck is supple. No lymphadenopathy. No bruits are heard over the carotid artery. No crepitus. Cardiovascular: S1, S2, regular rate and rhythm. Pulmonary: Clear to auscultation bilaterally. Abdomen: Bowel sounds are positive. Abdomen is soft, nontender, and nondistend ed. Extremities: No rash, lesions, or edema. No restriction of range of motion NEUROLOGICAL EXAMINATION: Alert Oriented to time, place and person. PERRL. EOMI. CN: no focal findings. Muscle tone: within normal. Muscle strength: 5 DTR: 2 Plantar reflex: Flexor response bilaterally Gait: not examined in bed. Sensory exam: no abnormal findings. No cerebellar signs elicited. F-T-N test accurate. Current Medications Current Medications Current Medications Sodium Chloride 1,000 ml @ 1,000 mls/hr Q1H IV Last administered on 06/03/19at 15:41; Start 06/03/19 at 15:41; Stop 06/03/19 at 16:40; Status DC Meclizine HCl (Antivert) 25 mg 1X ONCE PO Last administered on 06/03/19at 16: 00; Start 06/03/19 at 16:00; Stop 06/03/19 at 16:01; Status DC Magnesium Sulfate 100 ml @ 135 mls/hr 1X ONCE IV Last administered on 06/03/19at 17:24; Start 06/03/19 at 17:30; Stop 06/03/19 at 18:14; Status DC Magnesium Sulfate 500 ml @ 50 mls/hr Q10H IV ; Start 06/03/19 at 17:30; Stop 06/03/19 at 19:03; Status DC Calcium Gluconate (Calcium Gluconate) 1,000 mg 1X PRN PRN IVP MAGNESIUM TOXICITY; Start 06/03/19 at 17:00 Magnesium Sulfate 50 ml @ 25 mls/hr 1X ONCE IV Last administered on 06/03/19at 18:10; Start 06/03/19 at 17:30; Stop 06/03/19 at 19:29; Status DC Ondansetron HCl (Zofran) 4 mg PRN Q8HRS PRN IV NAUSEA/VOMITING; Start 06/03/19 at 17:00; Stop 06/04/19 at 16:59; Status DC Fentanyl Citrate (Fentanyl 2ml Vial) 50 mcg PRN Q1HR PRN IV PAIN Last administered on 06/03/19at 17:13; Start 06/03/19 at 17:00; Stop 06/04/19 at 16:59; Status DC Acetaminophen (Tylenol) 650 mg PRN Q4HRS PRN PO FEVER Last administered on 06/04/19 15:53; Start 06/03/19 at 17:00; Stop 06/04/19 at 16:59; Status DC Ibuprofen (Motrin) 800 mg PRN Q8HRS PRN PO MODERATE - SEVERE PAIN Last administered on 06/05/19 02:52; Start 06/03/19 at 18:45 Ringer's Solution 1,000 ml @ 75 mls/hr [id number] IV Last administered on 06/04/19 08:06; Start 06/03/19 at 19:00 Magnesium Sulfate 500 ml @ 50 mls/hr Q10H IV Last administered on 06/04/19 06:09; Start 06/03/19 at 19:03; Stop 06/05/19 at 08:18; Status DC Ketorolac Tromethamine (Toradol 30mg Vial) 30 mg PRN Q6HRS PRN IV PAIN Last administered on 06/04/19 19:44; Start 06/04/19 at 15:30; Stop 06/09/19 at 15:29 Diphenhydramine HCl (Benadryl) 25 mg PRN Q6HRS PRN IVP ITCHING Last administered on 06/04/19 19:46; Start 06/04/19 at 15:30 Acetaminophen (Tylenol) 650 mg PRN Q6HRS PRN PO MILD PAIN 1-3 Last administered on 06/05/19 02:56; Start 06/05/19 at 03:00 Clopidogrel Bisulfate (Plavix) 75 mg [id number] PO Last administered on 06/05/19 12:27; Start 06/05/19 at 12:00 Allergies Allergies: Allergies Coded Allergies Type Severity Reaction Last Updated Verified Sulfa (Sulfonamide Antibiotics) Allergy Intermediate Unknown 06/03/19 Yes ROS Review of System The patient denies any associated fevers, chills, headache, ear pain, rhinorrhea, sore throat, stiff neck, productive cough, chest pain, shortness of breath, back or flank pain, abdominal pain, nausea, vomiting, diarrhea, constipation, dysuria, rash, numbness, weakness, tingling, incontinence, difficulty ambulating, or diaphoresis. Physical Exam Physical Exam General: Well developed, well nourished, no acute distress, well appearing HEENT: Pupils equally round and reactive to light, EOMI, no discharge, normal conjunctiva Neck: Supple, no nuchal rigidity, no JVD, trachea midline, no tenderness Cardiac: RRR, no murmurs, no gallops, no rubs Chest/Lungs: CTAB, no wheeze, no rhonchi, no crackles Abdomen: soft, non-distended, no guarding, no peritoneal signs, non-tender Back: No tenderness Extremities: no edema, pulses intact, non-tender,capillary refill <3 sec bilateral upper and lower extremities, Neuro: Alert and oriented x 4, no focal deficits, normal speech Vitals Vitals: Vital Signs Date Time Temp Pulse Resp B/P (MAP) Pulse Ox O2 Delivery O2 Flow Rate FiO2 06/05/19 06:23 98.2 68 12 134/72 (92) 95 Room Air 98.2 Labs Labs Laboratory Tests Test 06/03/19 15:33 06/03/19 16:28 06/03/19 16:37 06/04/19 04:10 White Blood Count 9.5 x10^3/uL (4.0-11.0) 9.1 x10^3/uL (4.0-11.0) Red Blood Count 4.87 x10^6/uL (3.50-5.40) 5.05 x10^6/uL (3.50-5.40) Hemoglobin 14.4 g/dL (12.0-15.5) 14.9 g/dL (12.0-15.5) Hematocrit 42.4 % (36.0-47.0) 43.8 % (36.0-47.0) Mean Corpuscular Volume 87 fL (79-100) 87 fL (79-100) Mean Corpuscular Hemoglobin 30 pg (25-35) 30 pg (25-35) Mean Corpuscular Hemoglobin Concent 34 g/dL (31-37) 34 g/dL (31-37) Red Cell Distribution Width 13.5 % (11.5-14.5) 13.7 % (11.5-14.5) Platelet Count 268 x10^3/uL (140-400) 257 x10^3/uL (140-400) Neutrophils (%) (Auto) 68 % (31-73) 61 % (31-73) Lymphocytes (%) (Auto) 23 % (24-48) 28 % (24-48) Monocytes (%) (Auto) 6 % (0-9) 7 % (0-9) Eosinophils (%) (Auto) 2 % (0-3) 3 % (0-3) Basophils (%) (Auto) 1 % (0-3) 1 % (0-3) Neutrophils # (Auto) 6.4 x10^3/uL (1.8-7.7) 5.6 x10^3/uL (1.8-7.7) Lymphocytes # (Auto) 2.2 x10^3/uL (1.0-4.8) 2.5 x10^3/uL (1.0-4.8) Monocytes # (Auto) 0.6 x10^3/uL (0.0-1.1) 0.7 x10^3/uL (0.0-1.1) Eosinophils # (Auto) 0.2 x10^3/uL (0.0-0.7) 0.2 x10^3/uL (0.0-0.7) Basophils # (Auto) 0.1 x10^3/uL (0.0-0.2) 0.1 x10^3/uL (0.0-0.2) Sodium Level 144 mmol/L (136-145) 140 mmol/L (136-145) Potassium Level 4.2 mmol/L (3.5-5.1) 4.1 mmol/L (3.5-5.1) Chloride Level 105 mmol/L (98-107) 103 mmol/L (98-107) Carbon Dioxide Level 27 mmol/L (21-32) 28 mmol/L (21-32) Anion Gap 12 (6-14) 9 (6-14) Blood Urea Nitrogen 19 mg/dL (7-20) 13 mg/dL (7-20) Creatinine 0.8 mg/dL (0.6-1.0) 0.7 mg/dL (0.6-1.0) Estimated GFR (Cockcroft-Gault) 85.4 99.6 BUN/Creatinine Ratio 24 (6-20) 19 (6-20) Glucose Level 107 mg/dL (70-99) 113 mg/dL (70-99) Calcium Level 9.8 mg/dL (8.5-10.1) 8.2 mg/dL (8.5-10.1) Magnesium Level 2.1 mg/dL (1.8-2.4) Total Bilirubin 0.2 mg/dL (0.2-1.0) 0.2 mg/dL (0.2-1.0) Aspartate Amino Transf (AST/SGOT) 12 U/L (15-37) 12 U/L (15-37) Alanine Aminotransferase (ALT/SGPT) 12 U/L (14-59) 12 U/L (14-59) Alkaline Phosphatase 126 U/L (46-116) 120 U/L (46-116) Troponin I Quantitative < 0.017 ng/mL (0.000-0.055) Total Protein 7.4 g/dL (6.4-8.2) 6.8 g/dL (6.4-8.2) Albumin 3.8 g/dL (3.4-5.0) 3.3 g/dL (3.4-5.0) Albumin/Globulin Ratio 1.1 (1.0-1.7) 0.9 (1.0-1.7) Glucose (Fingerstick) 110 mg/dL (70-99) Urine Collection Type Unknown Urine Color Yellow Urine Clarity Clear Urine pH 6.5 Urine Specific [place] 1.010 Urine Protein Negative mg/dL (NEG-TRACE) Urine Glucose (UA) Negative mg/dL (NEG) Urine Ketones (Stick) Negative mg/dL (NEG) Urine Blood Large (NEG) Urine Nitrite Negative (NEG) Urine Bilirubin Negative (NEG) Urine Urobilinogen Dipstick 0.2 mg/dL (0.2 mg/dL) Urine Leukocyte Esterase Moderate (NEG) Urine RBC Rare /HPF (0-2) Urine WBC >40 /HPF (0-4) Urine Squamous Epithelial Cells Many /LPF Urine Bacteria Moderate /HPF (0-FEW) Triglycerides Level 120 mg/dL (0-150) Cholesterol Level 226 mg/dL (0-200) LDL Cholesterol, Calculated 146 mg/dL (0-100) VLDL Cholesterol, Calculated 24 mg/dL (0-40) Non-HDL Cholesterol Calculated 170 mg/dL (0-129) HDL Cholesterol 56 mg/dL (40-60) Cholesterol/HDL Ratio 4.0 Test 06/04/19 11:09 Thyroid Stimulating Hormone (TSH) 1.965 uIU/mL (0.358-3.74) SAMUEL MELGOZA MD Jun 05, 2019 13:53
[2019-06-05 14:23] LABS: BARBITURATES NEG (NEG); BENZODIAZEPINES NEG (NEG); CANNABINOIDS POS (NEG); COCAINE NEG (NEG); METHADONE NEG (NEG); OPIATES NEG (NEG); PHENCYCLIDINE NEG (NEG)
[2019-06-05 14:25] LABS: AMPHETAMINE/METHAMPHETAMINE NEG (NEG)
--- NOTE | 2019-06-05 14:52 | NUR ---
family requesting pt to be moved immediately to [facility] for immediate care. they want specilaists to see, informed dr garcia informed nursing home social worker . Padmini will get this in process..
[2019-06-05 15:05] VITALS: BP 143/98
--- NOTE | 2019-06-05 15:10 | NUR ---
SS following up with request for [facility] transfer. SS contacted [facility] and made request for transfer. SS spoke with Karen, , in the transfer team. SS faxed clinical and demographics to [facility] at fax [phone]. SS contacted IR and requested images be clouded to [facility]. SS awaiting acceptance decision at this time and will proceed accordingly.
[2019-06-05 16:40] VITALS: BP 134/95
--- NOTE | 2019-06-05 17:44 | PDOC ---
OB Progress Note Date of Service 06/05/19 Time of Evaluation 1192 Problem List Problems Medical Problems: (1) hypertension Status: Acute Notes Pt. unhappy with hospital stay. Her mother is present as well. Patient and mother desire to transfer to for 2nd opinion. Patient and mother informed of hospital care from admission up to this point. They desire transfer to . was contracted for transfer and recommend Dr. Gomez provide more information for transfer to be completed. Lab Laboratory Tests Test 06/04/19 04:10 06/04/19 11:09 06/05/19 13:15 White Blood Count 9.1 x10^3/uL (4.0-11.0) Red Blood Count 5.05 x10^6/uL (3.50-5.40) Hemoglobin 14.9 g/dL (12.0-15.5) Hematocrit 43.8 % (36.0-47.0) Mean Corpuscular Volume 87 fL (79-100) Mean Corpuscular Hemoglobin 30 pg (25-35) Mean Corpuscular Hemoglobin Concent 34 g/dL (31-37) Red Cell Distribution Width 13.7 % (11.5-14.5) Platelet Count 257 x10^3/uL (140-400) Neutrophils (%) (Auto) 61 % (31-73) Lymphocytes (%) (Auto) 28 % (24-48) Monocytes (%) (Auto) 7 % (0-9) Eosinophils (%) (Auto) 3 % (0-3) Basophils (%) (Auto) 1 % (0-3) Neutrophils # (Auto) 5.6 x10^3/uL (1.8-7.7) Lymphocytes # (Auto) 2.5 x10^3/uL (1.0-4.8) Monocytes # (Auto) 0.7 x10^3/uL (0.0-1.1) Eosinophils # (Auto) 0.2 x10^3/uL (0.0-0.7) Basophils # (Auto) 0.1 x10^3/uL (0.0-0.2) Sodium Level 140 mmol/L (136-145) Potassium Level 4.1 mmol/L (3.5-5.1) Chloride Level 103 mmol/L (98-107) Carbon Dioxide Level 28 mmol/L (21-32) Anion Gap 9 (6-14) Blood Urea Nitrogen 13 mg/dL (7-20) Creatinine 0.7 mg/dL (0.6-1.0) Estimated GFR (Cockcroft-Gault) 99.6 BUN/Creatinine Ratio 19 (6-20) Glucose Level 113 mg/dL (70-99) Calcium Level 8.2 mg/dL (8.5-10.1) Total Bilirubin 0.2 mg/dL (0.2-1.0) Aspartate Amino Transf (AST/SGOT) 12 U/L (15-37) Alanine Aminotransferase (ALT/SGPT) 12 U/L (14-59) Alkaline Phosphatase 120 U/L (46-116) Total Protein 6.8 g/dL (6.4-8.2) Albumin 3.3 g/dL (3.4-5.0) Albumin/Globulin Ratio 0.9 (1.0-1.7) Triglycerides Level 120 mg/dL (0-150) Cholesterol Level 226 mg/dL (0-200) LDL Cholesterol, Calculated 146 mg/dL (0-100) VLDL Cholesterol, Calculated 24 mg/dL (0-40) Non-HDL Cholesterol Calculated 170 mg/dL (0-129) HDL Cholesterol 56 mg/dL (40-60) Cholesterol/HDL Ratio 4.0 Thyroid Stimulating Hormone (TSH) 1.965 uIU/mL (0.358-3.74) Urine Opiates Screen Neg (NEG) Urine Methadone Screen Neg (NEG) Urine Barbiturates Neg (NEG) Urine Phencyclidine Screen Neg (NEG) Urine Amphetamine/Methamphetamine Neg (NEG) Urine Benzodiazepines Screen Neg (NEG) Urine Cocaine Screen Neg (NEG) Urine Cannabinoids Screen Pos (NEG) Urine Ethyl Alcohol Neg (NEG) Laboratory Tests Test 06/05/19 13:15 Urine Opiates Screen Neg (NEG) Urine Methadone Screen Neg (NEG) Urine Barbiturates Neg (NEG) Urine Phencyclidine Screen Neg (NEG) Urine Amphetamine/Methamphetamine Neg (NEG) Urine Benzodiazepines Screen Neg (NEG) Urine Cocaine Screen Neg (NEG) Urine Cannabinoids Screen Pos (NEG) Urine Ethyl Alcohol Neg (NEG) Medications Current Medications Sodium Chloride 1,000 ml @ 1,000 mls/hr Q1H IV Last administered on 06/03/19at 15:41; Start 06/03/19 at 15:41; Stop 06/03/19 at 16:40; Status DC Meclizine HCl (Antivert) 25 mg 1X ONCE PO Last administered on 06/03/19at 16:00; Start 06/03/19 at 16:00; Stop 06/03/19 at 16:01; Status DC Magnesium Sulfate 100 ml @ 135 mls/hr 1X ONCE IV Last administered on 06/03/19at 17:24; Start 06/03/19 at 17:30; Stop 06/03/19 at 18:14; Status DC Magnesium Sulfate 500 ml @ 50 mls/hr Q10H IV ; Start 06/03/19 at 17:30; Stop 06/03/19 at 19:03; Status DC Calcium Gluconate (Calcium Gluconate) 1,000 mg 1X PRN PRN IVP MAGNESIUM TOXICITY; Start 06/03/19 at 17:00 Magnesium Sulfate 50 ml @ 25 mls/hr 1X ONCE IV Last administered on 06/03/19at 18:10; Start 06/03/19 at 17:30; Stop 06/03/19 at 19:29; Status DC Ondansetron HCl (Zofran) 4 mg PRN Q8HRS PRN IV NAUSEA/VOMITING; Start 06/03/19 at 17:00; Stop 06/04/19 at 16:59; Status DC Fentanyl Citrate (Fentanyl 2ml Vial) 50 mcg PRN Q1HR PRN IV PAIN Last administered on 06/03/19at 17:13; Start 06/03/19 at 17:00; Stop 06/04/19 at 16:59; Status DC Acetaminophen (Tylenol) 650 mg PRN Q4HRS PRN PO FEVER Last administered on 06/04/19at 15:53; Start 06/03/19 at 17:00; Stop 06/04/19 at 16:59; Status DC Ibuprofen (Motrin) 800 mg PRN Q8HRS PRN PO MODERATE - SEVERE PAIN Last administered on 06/05/19at 02:52; Start 06/03/19 at 18:45 Ringer's Solution 1,000 ml @ 75 mls/hr [id number] IV Last administered on 06/04/19at 08:06; Start 06/03/19 at 19:00 Magnesium Sulfate 500 ml @ 50 mls/hr Q10H IV Last administered on 06/04/19 06:09; Start 06/03/19 at 19:03; Stop 06/05/19 at 08:18; Status DC Ketorolac Tromethamine (Toradol 30mg Vial) 30 mg PRN Q6HRS PRN IV PAIN Last administered on 06/04/19at 19:44; Start 06/04/19 at 15:30; Stop 06/09/19 at 15:29 Diphenhydramine HCl (Benadryl) 25 mg PRN Q6HRS PRN IVP ITCHING Last administered on 06/04/19at 19:46; Start 06/04/19 at 15:30 Acetaminophen (Tylenol) 650 mg PRN Q6HRS PRN PO MILD PAIN 1-3 Last administered on 06/05/19at 02:56; Start 06/05/19 at 03:00 Clopidogrel Bisulfate (Plavix) 75 mg [id number] PO Last administered on 06/05/19at 12:27; Start 06/05/19 at 12:00 Exam deferred. Pt. refuses at this time and very emotional. Assessment Post preeclampsia Thrombotic stroke Plan of Care: See new orders (Transfer to for further neurological care.) POONAM LI Jr, MD Jun 05, 2019 17:44
--- NOTE | 2019-06-05 19:39 | NUR ---
AMA Note: Patient was transferred from 3rd floor to 6S approximally at 1600. Patient was admitted with headache and hypertension. Patient still not feeling well and neurology ordered a MRI of the brain and was done on the but was not read until the . Neurology started Plavix, consulted cardiology (which Dr. Gomez put in the wrong Drs name in the consult). Dr. Gomez also ordered and Echo which was not done when patient transferred to the floor. Consult was not called until the patient transferred to the unit. Patients mother at the bedside at the time of transfer and she had many questions. Patient was very teary due to Dr. Gomez telling her she had a few strokes and will have to be on medicine for the rest of her life. Mother wanted patient to be transferred to , which Dr. Mansfield had been working on all day. Patients mother then wanted to leave and take her personally to and and get a second opinion. This RN contacted Dr. Mansfield and Dr. Nieto, which Dr. Mansfield came up to talk to patient and Dr. Nieto called and spoke to patients mother on the phone. Mother still wanted to leave but decided to give the transfer some time. However, patient and mother decided to leave AMA and go to for a second opinion. patients IV was removed Drs were called, security was called and patient was taken tot he main entrance via wheelchair with all personal belongings accompanied by this RN and security, and mother.
== END 2019-06-05 18:30 | disposition left against medical advice (07) | DRG 776 ==
LOC: ER 15:15 → 3 SO LND 17:09 → 3 NORTH 06-04 19:15 → 6 SOUTH 06-05 15:57
PROVIDERS: ADMIT Obstetrics & Gynecology; ATTEND Obstetrics & Gynecology
DX: O14.95 Unspecified pre-eclampsia, complicating the puerperium (principal); I63.9 Cerebral infarction, unspecified; G93.6 Cerebral edema; O90.89 Other complications of the puerperium, not elsewhere classified; G43.909 Migraine, unspecified, not intractable, without status migrainosus; O99.43 Diseases of the circulatory system complicating the puerperium; O99.215 Obesity complicating the puerperium; E66.9 Obesity, unspecified; O86.20 Urinary tract infection following delivery, unspecified; Z88.1 Allergy status to other antibiotic agents; Z88.2 Allergy status to sulfonamides
CPT/HCPCS: 36415; 70450; 70544; 70551; 71046; 80053; 80061; 80307; 81001; 82962; 83735; 84443; 84484; 85025; 87086; 93005; 96361; 96365; 96375; J1200; J1885; J3010; J3475; J7030; J7120; J8597; 99285-25; G0378